=== PATIENT | female | born 1935 | race Caucasian/White ===

== ENCOUNTER 2021-08-18 13:52 | Inpatient (IN) | payer MEDICARE, OTHER ==
[~2021-08-18] VITALS: Ht 162.6 cm; Wt 54.9 kg
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
[2021-08-18 13:55] VITALS: BP 128/55
[2021-08-18 14:17] LABS: ABSOLUTE BASOPHILS 0.1 thou/uL (0.0-0.2); ABSOLUTE EOSINOPHILS 0.1 thou/uL (0.0-0.7); ABSOLUTE MONOCYTES 0.9 thou/uL (0.0-1.2); ABSOLUTE NEUTROPHILS 5.6 thou/uL (1.6-8.1); BASOPHILS 0.8 %; EOSINOPHILS 0.9 %; HEMATOCRIT 37.1 % (37.0-47.0); HEMOGLOBIN 12.4 gm/dL (12.0-15.0); LYMPHOCYTES 23.6 %; MCH 33.2 pg (26.0-34.0); MCHC 33.5 g/dL (28.0-37.0); MCV 99.2 fL (80.0-100.0); MONOCYTES 9.9 %; MPV 8.6 fl. (7.2-11.1); NUCLEATED RBCS 0 /100WBC; PLATELET COUNT* 269 thou/uL (150-400); POLYS 64.8 %; RBC 3.74 mil/uL (4.20-5.00); RDW-CV 12.8 % (10.5-14.5); WBC 8.6 thou/uL (4.0-11.0)
[2021-08-18] MEDS ORDERED: ADVAIR 100-501 EACH INH (14:17)
[2021-08-18] MEDS ORDERED: OMEPRAZOLE 20 M20 M1 PO (14:17)
[2021-08-18] MEDS ORDERED: LEVOTHYROXINE75 MC1 PO (14:17)
[2021-08-18] MEDS ORDERED: APAP W/CODEINE1 TA2 PO (14:18)
[2021-08-18] MEDS ORDERED: CALCIUM500 MG PO (14:18)
[2021-08-18] MEDS ORDERED: VITAMIN D-40010 MCG PO (14:18)
[2021-08-18] MEDS ORDERED: MIRALAX119 GM PO (14:18)
[2021-08-18] MEDS ORDERED: KETOCONAZOLE SHAMPOO (14:19)
[2021-08-18 14:29] LABS: CALCIUM 8.3 mg/dL (8.5-10.1); CREATININE 0.9 mg/dL (0.6-1.3); POTASSIUM 4.3 mmol/L (3.5-5.1)
[2021-08-18 14:41] LABS: ALBUMIN 3.4 g/dL (3.4-5.0); TOTAL BILIRUBIN 0.3 mg/dL (<0.1-1.0); TOTAL PROTEIN 6.3 g/dL (6.4-8.2)
--- NOTE | 2021-08-18 16:00 | EKG ---
[place] [address] ELECTROCARDIOGRAM REPORT Name: SHAMEKA CONTRERAS Room: [place] [address] ADM IN [facility].#: [id number] Admission: 08/18/21 Attend Phys: Riddhi Marmolejo, Discharge: Date of : 37 Date of Service: 08/18/21 1425 Report #: [id number] THIS REPORT FOR: //name// [facility] ED Test Date: 2021-08-18 Test Time: 14:25:56 Pat Name: SHAMEKA CONTRERAS Department: Room: [facility] Gender: F Entry Level Receptionist: ADELFO : 1935 Requested By: Jacques Browne Order Number: [id number] MD: Shai Garg Measurements Intervals [place] Rate: 67 P: 69 TX: 164 QRS: 36 QRSD: 120 T: 47 QT: 442 QTc: 467 Interpretive Statements Sinus rhythm RsR' in V1 Atrial premature complex Probable left atrial enlargement Left ventricular hypertrophy No previous ECG available for comparison Electronically Signed On 08-18-2021 15:59:50 PILL PACKER by Shai Garg [email or web address] <ELECTRONICALLY SIGNED> By: Shai Garg MD, FAC 08/18/21 1559 1425 1425 Shai Garg MD, [facility] /EPI
[2021-08-18 16:31] LABS: URINE BILIRUBIN NEGATIVE (Negative); URINE BLOOD NEGATIVE (Negative); URINE CLARITY CLEAR; URINE COLOR YELLOW; URINE GLUCOSE-RANDOM NEGATIVE (Negative); URINE KETONES NEGATIVE (Negative); URINE LEUKOCYTES-REFLEX NEGATIVE (Negative); URINE NITRITE-REFLEX NEGATIVE (Negative); URINE PROTEIN NEGATIVE (Negative); URINE SPECIFIC GRAVITY 1.015 (1.005-1.030); URINE UROBILINOGEN 0.2 E.U./dl (0.2-1.0)
[2021-08-18 20:00] VITALS: BP 128/62
[2021-08-18] MEDS ORDERED: ZOCOR20 MG PO (20:02)
[2021-08-18] MEDS ORDERED: TRANXENE T-TAB7.5 MG PO (20:05)
[2021-08-19] VITALS (8 sets, daily range): BP systolic 111–164; BP diastolic 4–75
[2021-08-19 03:39] LABS: CALCIUM 8.5 mg/dL (8.5-10.1); CREATININE 0.7 mg/dL (0.6-1.3); POTASSIUM 3.8 mmol/L (3.5-5.1)
[2021-08-19 03:59] LABS: HEMATOCRIT 33.5 % (37.0-47.0); HEMOGLOBIN 11.3 gm/dL (12.0-15.0); MCH 33.6 pg (26.0-34.0); MCHC 33.9 g/dL (28.0-37.0); MCV 99.2 fL (80.0-100.0); MPV 8.6 fl. (7.2-11.1); RBC 3.37 mil/uL (4.20-5.00); RDW-CV 12.5 % (10.5-14.5); WBC 6.3 thou/uL (4.0-11.0)
--- NOTE | 2021-08-19 13:57 | 2DMMODE ---
[place] [address] 2 D/M-MODE ECHOCARDIOGRAM Name: SHAMEKA CONTRERAS Room: [facility] IN [facility]#: [id number] Admission: 08/18/21 Attend Phys: Riddhi Marmolejo, Discharge: Date of : 37 Date of Service: 08/19/21 1356 Report #: [id number] THIS REPORT FOR: cc: Sharon Bass MD, Pamela MD Liston, Michael J. MD [facility] ~ APPROVED REPORT Study performed: 08/19/2021 09:47:33 EXAM: Comprehensive 2D, Doppler, and color-flow Echocardiogram Patient Location: In-Patient Room #: er Status: routine BSA: 1.50 HR: 70 bpm BP: 144/65 mmHg Rhythm: NSR Other Information Study Quality: Good Indications Syncope 2D Dimensions IVSd: 10.45 (7-11mm) LVOT Diam: 22.21 (18-24mm) LVDd: 46.20 mm PWd: 10.91 (7-11mm) Ascending Ao: 28.44 (22-36mm) LVDs: 30.87 (25-40mm) Aortic Root: 29.12 mm Volumes Left Atrial Volume (Systole) LA ESV Index: 36.30 mL/m2 Aortic Valve AoV Peak Iban.: 1.52 m/s AO Peak Gr.: 9.26 mmHg LVOT Max P.65 mmHg AO Mean Gr.: 4.90 mmHg LVOT Mean P.89 mmHg LVOT Max V: 0.64 m/s AO V2 VTI: 31.46 cm LVOT Mean V: 0.44 m/s JAZ (VTI): 1.99 cm2 LVOT V1 VTI: 16.14 [place] [address] 2 D/M-MODE ECHOCARDIOGRAM Name: SHAMEKA CONTRERAS Room: [address] IN [facility]#: [id number] Admission: 08/18/21 Attend Phys: Riddhi Marmolejo, Discharge: Date of : 37 Date of Service: 08/19/21 1356 Report #: [id number] Mitral Valve E/A Ratio: 1.17 MV Decel. Time: 219.63 ms MV E Max Iban.: 0.68 m/s MV PHT: 63.69 ms MVA (PHT): 3.45 cm2 TDI E/Lateral E': 4.53 E/Medial E': 5.67 Medial E' Iban.: 0.12 m/s Lateral E' Iban.: 0.15 m/s Pulmonary Valve PV Peak Iban.: 0.76 m/s PV Peak Gr.: 2.32 mmHg Tricuspid Valve RAP Estimate: 5.00 mmHg TR Peak Gr.: 19.87 mmHg RVSP: 24.00 mmHg PA Pressure: 24.00 mmHg Left Ventricle The left ventricle is normal size. There is normal LV segmental wall motion. There is normal left ventricular wall thickness. Left ventricular systolic function is normal. LVEF is 55-60%. Transmitral Doppler flow pattern suggests pseudonormalization. Right Ventricle Right ventricle is mildly dilated. The right ventricular systolic function is normal. Atria Left atrium is mildly dilated. Right atrium is dilated. Aortic Valve Mild aortic valve sclerosis. No aortic regurgitation is present. Mild aortic stenosis. Mitral Valve The mitral valve is normal in structure. Trace mitral regurgitation. No evidence of mitral valve stenosis. Tricuspid Valve The tricuspid valve is normal in structure. Mild tricuspid regurgitation. No pulmonary hypertension. [place] [address] 2 D/M-MODE ECHOCARDIOGRAM Name: SHAMEKA CONTRERAS Room: [address] IN [facility]#: [id number] Admission: 08/18/21 Attend Phys: Riddhi Marmolejo, Discharge: Date of : 37 Date of Service: 08/19/21 1356 Report #: [id number] The pulmonary valve is normal in structure. There is no pulmonic valvular regurgitation. Great Vessels The aortic root is normal in size. IVC is normal in size and collapses >50% with inspiration. Pericardium There is no pericardial effusion. <Conclusion> The left ventricle is normal size. There is normal left ventricular wall thickness. Left ventricular systolic function is normal. LVEF is 55-60%. Transmitral Doppler flow pattern suggests pseudonormalization. Left atrium is mildly dilated. Right atrium is dilated. Mild aortic valve sclerosis. Mild aortic stenosis. Trace mitral regurgitation. Mild tricuspid regurgitation. No pulmonary hypertension. IVC is normal in size and collapses >50% with inspiration. <ELECTRONICALLY SIGNED> By: Taras Damon MD, FACC 08/19/21 1356 1356 1356 Taras Damon MD, FACC /INF
--- NOTE | 2021-08-19 14:30 | NUR ---
PT'S DAUGHTER'S PHONE NUMBER IS [phone]
--- NOTE | 2021-08-19 20:45 | NUR ---
SPOKE WITH DR AGUAYO ABOUT PT'S HS ANXIETY MEDICATION, INFORMED BY PHARMACY THAT MEDICATION IS NOT CARRIED BY THIS PHARMACY. DR NOTIFIED, AND ORDERS RECEIVED FOR SUBSTITUTION. SEE ORDERS, SEE EMAR.
[2021-08-20 04:32] VITALS: BP 137/65
[2021-08-20 04:46] LABS: ABSOLUTE BASOPHILS 0.1 thou/uL (0.0-0.2); ABSOLUTE EOSINOPHILS 0.1 thou/uL (0.0-0.7); ABSOLUTE LYMPHOCYTES 1.7 thou/uL (0.8-5.3); ABSOLUTE MONOCYTES 0.6 thou/uL (0.0-1.2); ABSOLUTE NEUTROPHILS 2.9 thou/uL (1.6-8.1); EOSINOPHILS 2.4 %; HEMATOCRIT 34.2 % (37.0-47.0); HEMOGLOBIN 11.5 gm/dL (12.0-15.0); LYMPHOCYTES 31.9 %; MCH 33.5 pg (26.0-34.0); MCHC 33.6 g/dL (28.0-37.0); MCV 99.5 fL (80.0-100.0); MONOCYTES 10.9 %; MPV 8.5 fl. (7.2-11.1); NUCLEATED RBCS 0 /100WBC; PLATELET COUNT* 216 thou/uL (150-400); POLYS 53.8 %; RBC 3.44 mil/uL (4.20-5.00); RDW-CV 12.9 % (10.5-14.5); WBC 5.3 thou/uL (4.0-11.0)
[2021-08-20 05:08] LABS: CALCIUM 8.4 mg/dL (8.5-10.1); CREATININE 0.7 mg/dL (0.6-1.3); POTASSIUM 3.7 mmol/L (3.5-5.1)
[2021-08-20 08:00] VITALS: BP 142/54
--- NOTE | 2021-08-20 09:48 | NUR ---
CM ASSESSMENT: PT A&O, INDEPENDENT WITH ADL'S, AND ACTIVE. PT RESIDES AT HOME ALONE. PT INFORMS THAT HER SON IS SUPPORTIVE AND INVOLVED IN HER POC AND ASSIST WITH TRANSPORTATION, GROCERY SHOPPING, AND APPOINTMENTS. PT USES 0 DME. PT HAS 0 HX OF HH OR SNF. PT MAY BENEFIT FROM HH AT D/C. CM WILL REMAIN AVAILABLE TO ASSIST AND FOLLOW NEEDED.
[2021-08-20 12:00] VITALS: BP 138/65
[2021-08-20 12:37] VITALS: BP 142/54
--- NOTE | 2021-08-20 13:29 | NUR ---
ASSUMED CARE OF PT AT 0730. PT A&0X4, DENIES ANY PAIN OR SHORTNESS OF BREATH AT THIS TIME. TRACING SR ON THE PILE DRIVER OPERATOR. ON RA SAT UPPER 90'S. PT UP SBA TO BATHROOM. IVF. PT GOAL FOR TODAY IS FINISH NEURO WORK UP AND DISCHARGE PLANNING TO HOME WITH HOME HEALTH. AM ASSESSMENT CHARTED. MEDS PER MAR. HOURLY ROUNDING OBSERVED. BED IN LOW POSITION. CALL LIGHT WITHIN REACH. WILL CONTINUE PLAN OF CARE.
[2021-08-20 13:35] LABS: CHOLESTEROL 157 mg/dL (<200); HDL CHOLESTEROL 92 mg/dL (>40); LDL CHOLESTEROL 58 mg/dL (<100); TC:HDL 1.7 Ratio (Not establshd); TRIGLYCERIDE 38 mg/dL (<150); VLDL 8 mg/dL (<40)
[2021-08-20 13:42] LABS: SERUM ASSESSMENT Clear
[2021-08-20 16:26] VITALS: BP 142/54
--- NOTE | 2021-08-20 17:17 | NUR ---
DISCHARGE ORDERS RECEIVED. DISCHARGE INSTRUCTIONS, CARE NOTES AND FOLLOW UP APPTS GIVEN TO PT. PT COMMUNICATES UNDERSTANDING OF DISCHARGE TEACHING. IV AND OPERATOR VACUUM REMOVED. PT DISCHARGED WITH ALL BELONGINGS AND PAPERWORK VIA WHEELCHAIR WITH NURSING STAFF TO SONS OWN PERSONAL VEHICLE. PT DISCHARGED TO HOME WITH HOME HEALTH.
--- NOTE | 2021-08-21 09:37 | NUR ---
LATE ENTRY: CM INFORMED THAT THE PHYSICIAN HAD ORDERED HH FOR THE PT AT D/C. CM CONTACTED THE THE PT TO INFORM OF THIS. PT DECLINED HH DESPITE EDUCATION AND ENCOURAGEMENT. CM WILL REMAIN AVAILABLE TO ASSIST AND FOLLOW NEEDED.
== END 2021-08-20 17:15 | disposition home health service (06) | DRG 641 ==
LOC: M.ERS 13:52 → M.TBA-ER 15:12 → M.2W 08-19 21:55
PROVIDERS: Family Medicine; Internal Medicine; Registered Nurse; ADMIT Internal Medicine; ATTEND Internal Medicine
DX: E86.0 Dehydration (principal); E03.9 Hypothyroidism, unspecified; J44.9 Chronic obstructive pulmonary disease, unspecified; E87.1 Hypo-osmolality and hyponatremia; F41.9 Anxiety disorder, unspecified; F43.9 Reaction to severe stress, unspecified; I10 Essential (primary) hypertension; Z20.822 Contact with and (suspected) exposure to COVID-19; Z88.7 Allergy status to serum and vaccine; Z88.8 Allergy status to other drugs, medicaments and biological substances